=== PATIENT | female | born 1970 | race Caucasian/White ===

== ENCOUNTER 2021-07-13 17:42 | Emergency (ER) | payer SELFPAY ==
[2021-07-13] MEDS ORDERED: FLUORESCEIN SODIUM 1 MG/WRAP ONE ×2 (18:36→20:31)
[2021-07-13] MEDS ORDERED: TETRACAINE HCL 0.5% 4ML OPTH ONE ×2 (18:36→20:01)
[2021-07-13] MEDS ORDERED: Ringers Lactate 1,000 ML IV ONE (20:46)
[2021-07-13] MEDS ORDERED: LIDOCAINE 1% W/EPI 1:100,000 MDV 20 ML VIAL ONE (21:15)
--- NOTE | 2021-07-13 21:18 | EDPHYS ---
Physician Documentation [facility] Name: Diamante Govea Age: 51 yrs Sex: Female : 1970 Arrival Date: 07/13/2021 Time: 17:43 Bed 12 Private MD: ED Physician Ismael Horn HPI: 07/13 19:12 This 51 yrs old Female presents to ER via Ambulatory with complaints of Eye cp Problem. 19:12 The patient is experiencing foreign body sensation, pain, redness, to both eyes, caused cp by contact lens. 19:12 Onset: The symptoms/episode began/occurred today. Duration: the symptoms are cp continuous. Patient wears soft contacts. Patient reports she was given albuterol neb solution instead of contact lense cleaning solution to place contact lenses in yesterday by staff of [facility]. Patient believes this was accidental and after soaking contact lenses in solution and placing lenses in eyes earlier today, she started having redness, pain and feeling like "grit" in eyes today. Patient reports she has removed lenses and right eye symptoms worse than left. 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 - Social history:: Smoking status: Patient denies any tobacco usage or history of. Patient uses street drugs, Methamphetamine (Meth) Pt states she has been clean for 1 month., Patient/guardian denies using alcohol. ROS: 19:20 Constitutional: Negative for body aches, chills, fever. cp 19:20 Eyes: Positive for foreign body sensation, pain, redness, of the right eye and left eye.cp 19:20 ENT: Negative for drainage from ear(s), ear pain, sore throat, difficulty swallowing, difficulty handling secretions. 19:20 Respiratory: Negative for cough, shortness of breath, wheezing. 19:20 Skin: Negative for rash. 19:20 Neuro: Negative for gait disturbance. 19:20 All other systems are negative. Exam: 19:30 Constitutional: The patient appears in no acute distress, alert, awake, non-toxic, well cp developed, well nourished, uncomfortable. 19:30 Head/Face: Normocephalic, atraumatic. cp 19:30 Eyes: Periorbital structures: appear normal, Pupils: equal, round, and reactive to light and accomodation, Extraocular movements: intact throughout, Conjunctiva: injected, in the right eye, Corneas: abrasion, is not appreciated, foreign body, is not appreciated, a fluorescein strip employed to appreciate the findings, Sclera: no appreciated abnormality, Lids and lashes: appear normal, bilaterally, Visual baptiste: are intact. 19:30 ENT: External ear(s): are unremarkable, Nose: is normal, Mouth: Lips: moist, Oral mucosa: moist, Posterior pharynx: Airway: no evidence of obstruction, patent. 19:30 Neck: ROM/movement: is normal, is supple, without pain, no range of motions limitations, Lymph nodes: no appreciated lymphadenopathy. 19:30 Chest/axilla: Inspection: normal. 19:30 Cardiovascular: Rate: normal. 19:30 Respiratory: the patient does not display signs of respiratory distress, Respirations: normal, no use of accessory muscles. 19:30 Skin: cellulitis, is not appreciated, no rash present. Vital Signs: 17:47 BP 148 / 97; Pulse 78; Resp 18; Temp 97.8(TE); Pulse Ox 98% on R/A; Weight 58.97 kg; ld1 Height 5 ft. 2 in. (157.48 cm); Pain 5/10; 17:47 Body Mass Index 23.78 (58.97 kg, 157.48 cm) ld1 MDM: 19:11 Patient medically screened. cp 20:00 Differential diagnosis: Corneal abrasion of both eyes. Foreign body in both eyes. cp Chemical conjunctivitis in both eyes. Infectious conjunctivitis in both eyes. 21:15 Data reviewed: vital signs, nurses notes. cp 21:15 Counseling: I had a detailed discussion with the patient and/or guardian regarding: the cp historical points, exam findings, and any diagnostic results supporting the discharge/admit diagnosis, the need for outpatient follow up, an opthalmologist, to return to the emergency department if symptoms worsen or persist or if there are any questions or concerns that arise at home. Response to treatment: the patient's symptoms have mildly improved after treatment, and as a result, I will discharge patient. 07/13 19:12 Order name: Eye Tray; Complete Time: 20:03 07/13 19:12 Order name: Fluoresene Opth strip; Complete Time: 20:03 cp 07/13 19:12 Order name: Visual Acuity; Complete Time: 20:03 cp 07/13 19:12 Order name: Fluoresene Opth strip; Complete Time: 20:12 cp Administered Medications: 19:30 Drug: Tetracaine Drops 0.5 % 1 drops {Note: admin by LISSETH Page.} Route: mr2 Ophthalmic; Site: both eyes; 21:00 Drug: Lactated Ringers Solution 1000 ml Route: IV; Rate: 150 bolus; Site: Other; mr2 Disposition: 21:30 Chart complete. cp 07/14 19:05 Co-signature as Attending Physician, Ismael Horn MD I agree with the assessment and rn plan of care. Attestation: The patient's history, exam findings, diagnostics, and a summary of any interventions or procedures was reviewed in detail with Jacobo MONTANEZ. Disposition Summary: 07/13/21 21:17 Discharge Ordered Location: Home cp Problem: new cp Symptoms: have improved cp Condition: Stable cp Diagnosis - Unspecified acute conjunctivitis, bilateral cp Followup: cp - With: Kaur Lui MD - When: 1 - 2 days - Reason: Recheck today's complaints Discharge Instructions: - Discharge Summary Sheet cp - Chemical Conjunctivitis, Adult cp Forms: - Medication Reconciliation Form cp - Thank You Letter cp - Antibiotic Education cp - Prescription Opioid Use cp Prescriptions: - Ibuprofen 800 mg Oral Tablet - take 1 tablet by ORAL route every 8 hours As needed take with food; 30 tablet; cp Refills: 0, Product Selection Permitted - artificial tears(hypromellose) 0.3 % Ophthalmic drops - instill 2 drop by OPHTHALMIC route every 3-4 hours for 7 days; 2 bottle; cp Refills: 0, Product Selection Permitted Signatures: Ismael Horn MD MD rn Page, Corey, PA PA cp Stephanie Herr RN RN ld1 Abilio Aponte RN RN mr2
--- NOTE | 2021-07-13 21:18 | ER ---
Nurse's Notes [facility] Name: Diamante Govea Age: 51 yrs Sex: Female : 1970 Arrival Date: 07/13/2021 Time: 17:43 Bed 12 Private MD: Diagnosis: Unspecified acute conjunctivitis, bilateral Presentation: 07/13 17:47 Chief complaint: Patient states: I wear contact lenses, currently I am a patient at [address] They had saline solution for me to put my contacts in. Today I put them in my eyes. I just now found out it was albuterol solution. I soaked my contacts in albuterol solution and put them in my eyes. Now my eyes are burning very bad. Coronavirus screen: At this time, the client does not indicate any symptoms associated with coronavirus-19. Ebola Screen: No symptoms or risks identified at this time. Initial Sepsis Screen: Does the patient meet any 2 criteria? No. Patient's initial sepsis screen is negative. Does the patient have a suspected source of infection? No. Patient's initial sepsis screen is negative. Risk Assessment: Do you want to hurt yourself or someone else? Patient reports no desire to harm self or others. Onset of symptoms was July 13, 2021. 17:47 Method Of Arrival: Ambulatory ld1 17:47 Acuity: MELISSA 4 ld1 Triage Assessment: 17:50 General: Appears in no apparent distress. comfortable, Behavior is calm, cooperative, ld1 appropriate for age. Pain: Denies pain. EENT: Eyes are tearing on outer aspect of conjuctiva of right eye, iris of right eye, inner aspect of conjuctiva of right eye, outer aspect of conjuctiva of left eye, iris of left eye and inner aspect of conjunctiva of left eye Reports blurred vision. Neuro: Level of Consciousness is awake, alert, obeys commands, Oriented to person, place, time, situation, Appropriate for age. Cardiovascular: Capillary refill < 3 seconds Patient's skin is warm and dry. Respiratory: Airway is patent Respiratory effort is even, unlabored, Respiratory pattern is regular, symmetrical. GI: Abdomen is flat, non-distended. 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 - Social history:: Smoking status: Patient denies any tobacco usage or history of. Patient uses street drugs, Methamphetamine (Meth) Pt states she has been clean for 1 month., Patient/guardian denies using alcohol. Screenin:31 Abuse screen: Denies threats or abuse. Denies injuries from another. Nutritional mr2 screening: No deficits noted. Tuberculosis screening: No symptoms or risk factors identified. Fall Risk Secondary diagnosis (15 points) visual impairment . Assessment: 21:29 EENT: Eyes are tearing on outer aspect of conjuctiva of right eye, iris of right eye, mr2 inner aspect of conjuctiva of right eye, outer aspect of conjuctiva of left eye, iris of left eye and inner aspect of conjunctiva of left eye redness also bilaterally. Vital Signs: 17:47 BP 148 / 97; Pulse 78; Resp 18; Temp 97.8(TE); Pulse Ox 98% on R/A; Weight 58.97 kg; ld1 Height 5 ft. 2 in. (157.48 cm); Pain 5/10; 17:47 Body Mass Index 23.78 (58.97 kg, 157.48 cm) ld1 ED Course: 17:43 Patient arrived in ED. am2 17:50 Triage completed. ld1 17:50 Arm band placed on right wrist. ld1 19:04 Jacobo Ornelas PA is PHCP. cp 19:04 Ismael Horn MD is Attending Physician. cp 19:10 Bed in low position. Call light in reach. Side rails up X2. mr2 20:03 Abilio Aponte, SAMMY is Primary Nurse. mr2 21:16 Kaur Lui MD is Referral Physician. cp 21:30 No provider procedures requiring assistance completed. Patient did not have IV access mr2 during this emergency room visit. Administered Medications: 19:30 Drug: Tetracaine Drops 0.5 % 1 drops {Note: admin by LISSETH Page.} Route: mr2 Ophthalmic; Site: both eyes; 21:00 Drug: Lactated Ringers Solution 1000 ml Route: IV; Rate: 150 bolus; Site: Other; mr2 Outcome: 21:17 Discharge ordered by MD. lyman 21:30 Discharged to home ambulatory. mr2 21:30 Condition: stable 21:30 Discharge instructions given to patient, Instructed on discharge instructions, follow up and referral plans. 21:33 Patient left the ED. mr2 Signatures: Jacobo Ornelas PA PA cp Moreno, Amanda am2 Stephanie Herr RN RN ld1 Abilio Aponte RN RN mr2
[2021-07-13 22:10] VITALS: BP 148/97; TEMP 97.8; O2SAT 98
--- OUTSIDE RECORDS SUMMARY | 2021-07-22 11:58 | XMS REPORT | Continuity of Care Document ---
:1970 Author Organization [facility] t Address [address] [place] [address] Care Team Providers Name Role Phone Pcp, Does Not Have A Primary Care Physician Doctor Unassigned, Name Attending Clinician Unavailable Lena MORRIS Attending Clinician Unavailable Roberto Yeung DO Attending Clinician Mor Attending Clinician [phone] Blu LONG A Attending Clinician Unknown Attending Clinician Unavailable UNKNOWN Attending Clinician Unavailable Pravin CHRISTIANSON Attending Clinician Unavailable Only, Test Attending Clinician Unavailable Arturo JOHNSON H Attending Clinician Jose LONG, L Attending Clinician GARCIA, L Attending Clinician Unavailable Maryann Nava MD Attending Clinician Jack Boo MD Attending Clinician Problems Condition Condition Condition Status Onset Resolution Last Treating Co mments Source Name Details Category Date Date Treatment Clinician Date Low serum Low serum Disease Active Uni vers vitamin vitamin 1-04 ity of B12 B12 00:00: [place] 00 Medical Branch Long-term Long-term Disease Active 2017-09 Uni vers use of use of 2-21 [place] of high-risk high-risk [place] 00 [place] dic[place] Attention Attention Disease Active 2017-09 Uni vers deficit deficit 2-21 ity [place] hyperactiv [place] Medical disorder disorder Branch (ADHD), (ADHD), combined combined type type Anxiety Anxiety Disease Active 2017-09 Univers 2-21 ity of 00:00: [place] 00 Medical Branch Mild Mild Disease Active 2017-09 Univers intermitte intermitte 2-21 it y of nt asthma nt asthma 00:[place] without without 00 Medical complicati complicati Br anch on on Allergies, Adverse Reactions, Alerts Allergy Allergy Status Severity Reaction(s) Onset Inactive Treating Comm ents Source Name Type Date Date Clinician BUTALBIT DRUG Active Unknown-Cmnt Un arsh AL-ACETA 9- ity of MINOPHEN 00:00: [place] 00 Medical Branch Butalbit Propensi Active Unknown - "Disorien Univers al-Aceta ty to See comments 05-28 david" it y of minophen adverse 00:00: [place] reaction 00 Medical s to Branch drug FLUTICAS DRUG Active Unknown-Cmnt Un arsh ONE 2-21 ity of PROPION- 00:00: [place] SALMETER 00 Medical OL Branch Fluticas Propensi Active Unknown - Uni vers one ty to See comments 2- ity of Propion- adverse 00:00: [place] Salmeter reaction 00 Medica l ol s Branch Social History Social Habit Start Date Stop Date Quantity Comments Source History SDOH University o f Alcohol Frequency [place] [facility] Branch History SDOH University o f Alcohol Std [place] [facility] Drinks Branch History SDOH University o f Alcohol Binge [place] Medic al Branch Exposure to Not sure [facility] SARS-CoV-2 [place] [facility] (event) Branch Alcohol intake 2020-08-17 2020-08-17 Current drinker Unive rsity of 00:00:00 00:00:00 of alcohol [place] [facility] (finding) Branch Alcohol Comment 2018-08-29 2018-08-29 a few times per Univ ersity of 00:00:00 00:00:00 month. max 2 [place] Medica l drinks per night Branch Tobacco use and 2018-08-29 2018-08-29 Never used Universit y of exposure 00:00:00 00:00:00 [facility] Sex [birth year] Universit y of 00:00:00 00:00:00 [facility] Smoking Status Start Date Stop Date Source Never smoker [facility] Medical Branch Medications Ordered Filled Start Stop Current Ordering Indication Dosage Frequency Signature Comments Components Source Medication Medication Date Date Medication? Clinician (SIG) Name Name ketorolac 2019-09- No 30mg Univers (TORADOL) 10-19 ity of injection 02:45: 01:43 [place] 30 mg 00 :00 Medical Branch ketorolac 2019-09- No 30mg 30 mg, Unive rs (TORADOL) 10-19 Intramuscu ity of injection 02:45: 01:43 [place], ONCE, [place] 30 mg 00 :00 1 dose, Medical Wed Branch 08/17/20 at 2045, Routine
[employer] crew[employer] approving Restricted medication : [place] naproxen 2019-09 2020- No [id number] 500mg Take 1 Univers 500 mg 10-18 [id number] tablet by ity o f tablet 00:00: 05:59 mouth 2 [place] 00 :00 (two) Medical times Branch daily with meals for 7 days. naproxen 2019-09- No [id number] 500mg Take 1 Univers 500 mg 10-18 [id number] tablet by ity o f tablet 00:00: 05:59 mouth 2 [place] 00 :00 (two) Medical times Branch daily with meals for 7 days. azelastine 2019- Yes [id number] 2{spray Use 2 Univers 137 mcg 06-01 } Sprays in ity of (0.1 %) 00:00: each [place] nasal spray 00 nostril 2 Med ical (two) Branch times daily. Use in each nostril as directed methocarbam 2020-0 Yes [id number] 500mg Take 1 Univers oL 9-23 tablet by ity of (ROBAXIN) 00:00: mouth 4 [place] 500 mg 00 (four) Medical tablet times Branch daily as needed for Pain (scale 4-6). SUMAtriptan 2019-0 Yes [id number] 25mg Take 1 Univers (IMITREX) 9-23 tablet by ity o f 25 mg 00:00: mouth [place] tablet 00 SEE-INSTRU Medical CTIONS. Branch Take 1 tab for migraine headache, may repeat in 2 hours if no improvemen t. MAX 2 daily. azelastine 2019-0 Yes [id number] 2{spray Use 2 Univers 137 mcg 06-01 } Sprays in ity of (0.1 %) 00:00: each [place] nasal spray 00 nostril 2 Med ical (two) Branch times daily. Use in each nostril as directed methocarbam 2020-0 Yes [id number] 500mg Take 1 Univers oL 9-23 tablet by ity of (ROBAXIN) 00:00: mouth 4 [place] 500 mg 00 (four) Medical tablet times Branch daily as needed for Pain (scale 4-6). SUMAtriptan 2020-0 Yes [id number] 25mg Take 1 Univers (IMITREX) 9-23 tablet by ity o f 25 mg 00:00: mouth [place] tablet 00 SEE-INSTRU Medical CTIONS. Branch Take 1 tab for migraine headache, may repeat in 2 hours if no improvemen t. MAX 2 daily. azelastine 2020-0 Yes [id number] 2{spray Use 2 Univers 137 mcg 06-01 } Sprays in ity of (0.1 %) 00:00: each [place] nasal spray 00 nostril 2 Med ical (two) Branch times daily. Use in each nostril as directed methocarbam 2020-0 Yes [id number] 500mg Take 1 Univers oL 9-23 tablet by ity of (ROBAXIN) 00:00: mouth 4 [place] 500 mg 00 (four) Medical tablet times Branch daily as needed for Pain (scale 4-6). SUMAtriptan 2020-0 Yes [id number] 25mg Take 1 Univers (IMITREX) 9-23 tablet by ity o f 25 mg 00:00: mouth [place] tablet 00 SEE-INSTRU Medical CTIONS. Branch Take 1 tab for migraine headache, may repeat in 2 hours if no improvemen t. MAX 2 daily. azelastine 2020-0 Yes [id number] 2{spray Use 2 Univers 137 mcg 06-01 } Sprays in ity of (0.1 %) 00:00: each [place] nasal spray 00 nostril 2 Med ical (two) Branch times daily. Use in each nostril as directed methocarbam 2020-0 Yes [id number] 500mg Take 1 Univers oL 9-23 tablet by ity of (ROBAXIN) 00:00: mouth 4 [place] 500 mg 00 (four) Medical tablet times Branch daily as needed for Pain (scale 4-6). SUMAtriptan 2020-0 Yes [id number] 25mg Take 1 Univers (IMITREX) 9-23 tablet by ity o f 25 mg 00:00: mouth [place] tablet 00 SEE-INSTRU Medical CTIONS. Branch Take 1 tab for migraine headache, may repeat in 2 hours if no improvemen t. MAX 2 daily. azelastine 2020-0 Yes [id number] 2{spray Use 2 Univers 137 mcg 9- 61996 } Sprays in ity of (0.1 %) 00:00: each [place] nasal spray 00 nostril 2 Med ical (two) Branch times daily. Use in each nostril as directed methocarbam 2020-0 Yes [id number] 500mg Take 1 Univers oL 9-23 tablet by ity of (ROBAXIN) 00:00: mouth 4 [place] 500 mg 00 (four) Medical tablet times Branch daily as needed for Pain (scale 4-6). SUMAtriptan 2020-0 Yes [id number] 25mg Take 1 Univers (IMITREX) 9-23 tablet by ity o f 25 mg 00:00: mouth [place] tablet 00 SEE-INSTRU Medical CTIONS. Branch Take 1 tab for migraine headache, may repeat in 2 hours if no improvemen t. MAX 2 daily. azelastine 2020-0 Yes [id number] 2{spray Use 2 Univers 137 mcg 9- 56615 } Sprays in ity of (0.1 %) 00:00: each [place] nasal spray 00 nostril 2 Med ical (two) Branch times daily. Use in each nostril as directed methocarbam 2020-0 Yes [id number] 500mg Take 1 Univers oL 9-23 tablet by ity of (ROBAXIN) 00:00: mouth 4 [place] 500 mg 00 (four) Medical tablet times Branch daily as needed for Pain (scale 4-6). SUMAtriptan 2020-0 Yes [id number] 25mg Take 1 Univers (IMITREX) 9-23 tablet by ity o f 25 mg 00:00: mouth [place] tablet 00 SEE-INSTRU Medical CTIONS. Branch Take 1 tab for migraine headache, may repeat in 2 hours if no improvemen t. MAX 2 daily. azelastine 2020-0 Yes [id number] 2{spray Use 2 Univers 137 mcg 9- 30540 } Sprays in ity of (0.1 %) 00:00: each [place] nasal spray 00 nostril 2 Med ical (two) Branch times daily. Use in each nostril as directed methocarbam 2020-0 Yes [id number] 500mg Take 1 Univers oL 9-23 tablet by ity of (ROBAXIN) 00:00: mouth 4 [place] 500 mg 00 (four) Medical tablet times Branch daily as needed for Pain (scale 4-6). SUMAtriptan 2020-0 Yes [id number] 25mg Take 1 Univers (IMITREX) 9-23 tablet by ity o f 25 mg 00:00: mouth [place] tablet 00 SEE-INSTRU Medical CTIONS. Branch Take 1 tab for migraine headache, may repeat in 2 hours if no improvemen t. MAX 2 daily. azelastine 2020-0 Yes [id number] 2{spray Use 2 Univers 137 mcg 06-01 97085 } Sprays in ity of (0.1 %) 00:00: each [place] nasal spray 00 nostril 2 Med ical (two) Branch times daily. Use in each nostril as directed methocarbam 2020-0 Yes [id number] 500mg Take 1 Univers oL 9-23 tablet by ity of (ROBAXIN) 00:00: mouth 4 [place] 500 mg 00 (four) Medical tablet times Branch daily as needed for Pain (scale 4-6). SUMAtriptan 2020-0 Yes [id number] 25mg Take 1 Univers (IMITREX) 9-23 tablet by ity o f 25 mg 00:00: mouth [place] tablet 00 SEE-INSTRU Medical CTIONS. Branch Take 1 tab for migraine headache, may repeat in 2 hours if no improvemen t. MAX 2 daily. azelastine 2020-0 Yes [id number] 2{spray Use 2 Univers 137 mcg 9 40165 } Sprays in ity of (0.1 %) 00:00: each [place] nasal spray 00 nostril 2 Med ical (two) Branch times daily. Use in each nostril as directed methocarbam 2020-0 Yes [id number] 500mg Take 1 Univers oL 9-23 tablet by ity of (ROBAXIN) 00:00: mouth 4 [place] 500 mg 00 (four) Medical tablet times Branch daily as needed for Pain (scale 4-6). SUMAtriptan 2020-0 Yes [id number] 25mg Take 1 Univers (IMITREX) 9-23 tablet by ity o f 25 mg 00:00: mouth [place] tablet 00 SEE-INSTRU Medical CTIONS. Branch Take 1 tab for migraine headache, may repeat in 2 hours if no improvemen t. MAX 2 daily. SUMAtriptan 2020-0 2020- No [id number] 25mg Take 1 Univers (IMITREX) 06-01 tablet by ity of 25 mg 00:00: 00:00 mouth [place] tablet 00 :00 SEE-INSTRU Medical CTIONS. Branch Take 1 tab for migraine headache, may repeat in 2 hours if no improvemen t. MAX 2 daily. methocarbam 2020-0 2020- No [id number] 500mg Take 1 Univers oL 06-01 tablet by ity of (ROBAXIN) 00:00: 00:00 mouth 4 [place] 500 mg 00 :00 (four) Medical tablet times Branch daily as needed for Pain (scale 4-6). azelastine 2019-2019- No [id number] 2{spray Use 2 Univers 137 mcg 06-01 } Sprays in ity o f (0.1 %) 00:00: 00:00 each [place] nasal spray 00 :00 nostril 2 Med ical (two) Branch times daily. Use in each nostril as directed SUMAtriptan 2020-0 2020- No [id number] 25mg Take 1 Univers (IMITREX) 06-01 tablet by ity of 25 mg 00:00: 00:00 mouth [place] tablet 00 :00 SEE-INSTRU Medical CTIONS. Branch Take 1 tab for migraine headache, may repeat in 2 hours if no improvemen t. MAX 2 daily. methocarbam 2019-2019- No [id number] 500mg Take 1 Univers oL 06-01 tablet by ity of (ROBAXIN) 00:00: 00:00 mouth 4 [place] 500 mg 00 :00 (four) Medical tablet times Branch daily as needed for Pain (scale 4-6). azelastine 2019-2019- No [id number] 2{spray Use 2 Univers 137 mcg 06-01 } Sprays in ity o f (0.1 %) 00:00: 00:00 each [place] nasal spray 00 :00 nostril 2 Med ical (two) Branch times daily. Use in each nostril as directed chlorhexidi 2018- Yes [id number] 15mL Swish and Univers ne 0.12 % 2-03 spit out ity of mouthwash 00:00: 15 mL 2 [place] 00 (two) Medical times Branch daily. naproxen 2018-09 Yes [id number] 375mg Take 1 U nivers 375 mg EC 2-03 tablet by ity o f tablet 00:00: mouth 2 [place] 00 (two) Medical times Branch daily with meals. atomoxetine 2018-09 Yes [id number] 80mg Take 1 Univers (STRATTERA) 2-03 capsule by it y of 80 mg 00:00: mouth [place] capsule 00 daily. Medical After 1 Branch week 40mg daily chlorhexidi 2018-09 Yes [id number] 15mL Swish and Univers ne 0.12 % 2-03 spit out ity of mouthwash 00:00: 15 mL 2 [place] 00 (two) Medical times Branch daily. naproxen 2018-09 Yes [id number] 375mg Take 1 U nivers 375 mg EC 2-03 tablet by ity o f tablet 00:00: mouth (two) Medical times Branch daily with meals. atomoxetine 2018-09 Yes [id number] 80mg Take 1 Univers (STRATTERA) 2-03 capsule by it y of 80 mg 00:00: mouth [place] capsule 00 daily. Medical After 1 Branch week 40mg daily chlorhexidi 2018-09 Yes [id number] 15mL Swish and Univers ne 0.12 % 2-03 spit out ity of mouthwash 00:00: 15 mL 2 [place] 00 (two) Medical times Branch daily. naproxen 2018-09 Yes [id number] 375mg Take 1 U nivers 375 mg EC 2-03 tablet by ity o f tablet 00:00: mouth 2 [place] (two) Medical times Branch daily with meals. atomoxetine 2018-09 Yes [id number] 80mg Take 1 Univers (STRATTERA) 2-03 capsule by it y of 80 mg 00:00: mouth [place] capsule 00 daily. Medical After 1 Branch week 40mg daily chlorhexidi 2018-09 Yes [id number] 15mL Swish and Univers ne 0.12 % 2-03 spit out ity of mouthwash 00:00: 15 mL 2 [place] 00 (two) Medical times Branch daily. naproxen 2018-09 Yes [id number] 375mg Take 1 U nivers 375 mg EC 2-03 tablet by ity o f tablet 00:00: mouth 2 00 (two) Medical times Branch daily with meals. atomoxetine 2018-09 Yes [id number] 80mg Take 1 Univers (STRATTERA) 2-03 capsule by it y of 80 mg 00:00: mouth [place] capsule 00 daily. Medical After 1 Branch week 40mg daily chlorhexidi 2018-09 Yes [id number] 15mL Swish and Univers ne 0.12 % 2-03 spit out ity of mouthwash 00:00: 15 mL 2 [place] 00 (two) Medical times Branch daily. naproxen 2018-09 Yes [id number] 375mg Take 1 U nivers 375 mg EC 2-03 tablet by ity o f tablet 00:00: mouth 2 00 (two) Medical times Branch daily with meals. atomoxetine 2018-09 Yes [id number] 80mg Take 1 Univers (STRATTERA) 2-03 capsule by it y of 80 mg 00:00: mouth [place] capsule 00 daily. Medical After 1 Branch week 40mg daily chlorhexidi 2018-09 Yes [id number] 15mL Swish and Univers ne 0.12 % 2-03 spit out ity of mouthwash 00:00: 15 mL 2 00 (two) Medical times Branch daily. naproxen 2018-09 Yes [id number] 375mg Take 1 U nivers 375 mg EC 2-03 tablet by ity o f tablet 00:00: mouth 2 00 (two) Medical times Branch daily with meals. atomoxetine 2018-09 Yes [id number] 80mg Take 1 Univers (STRATTERA) 2-03 capsule by it y of 80 mg 00:00: mouth [place] capsule 00 daily. Medical After 1 Branch week 40mg daily chlorhexidi 2018-09 Yes [id number] 15mL Swish and Univers ne 0.12 % 2-03 spit out ity of mouthwash 00:00: 15 mL 2 00 (two) Medical times Branch daily. naproxen 2018-09 Yes [id number] 375mg Take 1 U nivers 375 mg EC 2-03 tablet by ity o f tablet 00:00: mouth 2 00 (two) Medical times Branch daily with meals. atomoxetine 2018-09 Yes [id number] 80mg Take 1 Univers (STRATTERA) 2-03 capsule by it y of 80 mg 00:00: mouth [place] capsule 00 daily. Medical After 1 Branch week 40mg daily chlorhexidi 2018-09 Yes [id number] 15mL Swish and Univers ne 0.12 % 2-03 spit out ity of mouthwash 00:00: 15 mL 2 [place] 00 (two) Medical times Branch daily. naproxen 2018-09 Yes [id number] 375mg Take 1 U nivers 375 mg EC 2-03 tablet by ity o f tablet 00:00: mouth 2 [place] 00 (two) Medical times Branch daily with meals. atomoxetine 2018-09 Yes [id number] 80mg Take 1 Univers (STRATTERA) 2-03 capsule by it y of 80 mg 00:00: mouth [place] capsule 00 daily. Medical After 1 Branch week 40mg daily chlorhexidi 2018-09 Yes [id number] 15mL Swish and Univers ne 0.12 % 2-03 spit out ity of mouthwash 00:00: 15 mL 2 [place] 00 (two) Medical times Branch daily. naproxen 2018-09 Yes [id number] 375mg Take 1 U nivers 375 mg EC 2-03 tablet by ity o f tablet 00:00: mouth 2 [place] 00 (two) Medical times Branch daily with meals. atomoxetine 2018-09 Yes [id number] 80mg Take 1 Univers (STRATTERA) 2-03 capsule by it y of 80 mg 00:00: mouth [place] capsule 00 daily. Medical After 1 Branch week 40mg daily methocarbam 2018-09 2020- No [id number] 500mg Take 1 Univers ol 2-03 -23 tablet by ity of (ROBAXIN) 00:00: 00:00 mouth 4 [place] 500 mg 00 :00 (four) Medical tablet times Branch daily as needed for Pain (scale 4-6). methocarbam 2018-09 2020- No [id number] 500mg Take 1 Univers ol 2-03 -23 tablet by ity of (ROBAXIN) 00:00: 00:00 mouth 4 [place] 500 mg 00 :00 (four) Medical tablet times Branch daily as needed for Pain (scale 4-6). hydroCHLORO Yes [id number] 6.25mg Take 0.5 Univers thiazide 8-21 [id number] tablets by ity of 12.5 mg 00:00: mouth [place] tablet 00 daily. Medical Branch hydroCHLORO Yes [id number] 6.25mg Take 0.5 Univers thiazide 8-21 [id number] tablets by ity of 12.5 mg 00:00: mouth [place] tablet [address] [facility] hydroCHLORO 2019-0 Yes [id number] 6.25mg Take 0.5 Univers thiazide 8-21 [id number] tablets by ity of 12.5 mg 00:00: mouth [place] tablet [address] [facility] hydroCHLORO 0 Yes [id number] 6.25mg Take 0.5 Univers thiazide 8-21 [id number] tablets by ity of 12.5 mg 00:00: mouth [place] tablet [address] [facility] hydroCHLORO Yes [id number] 6.25mg Take 0.5 Univers thiazide 8-21 [id number] tablets by ity of 12.5 mg 00:00: mouth [place] tablet [address] [facility] hydroCHLORO Yes [id number] 6.25mg Take 0.5 Univers thiazide 8-21 [id number] tablets by ity of 12.5 mg 00:00: mouth [place] tablet [address] [facility] hydroCHLORO Yes [id number] 6.25mg Take 0.5 Univers thiazide 8-21 [id number] tablets by ity of 12.5 mg 00:00: mouth [place] tablet [address] [facility] azelastine Yes [id number] 2{spray Use 2 Univers 137 mcg 8-21 29909 } Sprays in ity of (0.1 %) 00:00: each [place] nasal spray 00 nostril 2 Med ical (two) Branch times daily. Use in each nostril as directed hydroCHLORO 0 Yes [id number] 6.25mg Take 0.5 Univers thiazide 8-21 [id number] tablets by ity of 12.5 mg 00:00: mouth [place] tablet [address] [facility] azelastine Yes [id number] 2{spray Use 2 Univers 137 mcg 8-21 93210 } Sprays in ity of (0.1 %) 00:00: each [place] nasal spray 00 nostril 2 Med ical (two) Branch times daily. Use in each nostril as directed hydroCHLORO Yes [id number] 6.25mg Take 0.5 Univers thiazide 8-21 [id number] tablets by ity of 12.5 mg 00:00: mouth [place] tablet [address] [facility] hydroCHLORO Yes [id number] 6.25mg Take 0.5 Univers thiazide 8-21 [id number] tablets by ity of 12.5 mg 00:00: mouth [place] tablet [address] [facility] hydroCHLORO Yes [id number] 6.25mg Take 0.5 Univers thiazide 8-21 [id number] tablets by ity of 12.5 mg 00:00: mouth [place] tablet [address] [facility] azelastine 2019- No [id number] 2{spray Use 2 Univers 137 mcg -06-01 } Sprays in ity o f (0.1 %) 00:00: 00:00 each [place] nasal spray 00 :00 nostril 2 Med ical (two) Branch times daily. Use in each nostril as directed azelastine 2019- No [id number] 2{spray Use 2 Univers 137 mcg -06-01 94581 } Sprays in ity o f (0.1 %) 00:00: 00:00 each [place] nasal spray 00 :00 nostril 2 Med ical (two) Branch times daily. Use in each nostril as directed hydroCHLORO 2018- No [id number] 6.25mg Take 0.5 Univers thiazide 8-29 04-06 tablets by ity of 12.5 mg 00:00: 00:00 mouth [place] tablet 00 :[address] [facility] azelastine 2018- No [id number] 2{spray Use 2 Univers 137 mcg -04-29 41643 } Sprays in ity o f (0.1 %) 00:00: 00:00 each [place] nasal spray 00 :00 nostril 2 Med ical (two) Branch times daily. Use in each nostril as directed hydroCHLORO 2018- No [id number] 6.25mg Take 0.5 Univers thiazide 8-29 04- 04422 tablets by ity of 12.5 mg 00:00: 00:00 mouth [place] tablet 00 :[address] [facility] azelastine 2018- No [id number] 2{spray Use 2 Univers 137 mcg 8-29 04- 55370 } Sprays in ity o f (0.1 %) 00:00: 00:00 each [place] nasal spray 00 :00 nostril 2 Med ical (two) Branch times daily. Use in each nostril as directed ketorolac 2019- No [id number] 10mg Take 1 U nivers 10 mg 7-18 08-22 tablet by ity of tablet 00:00: 00:00 mouth [place] 00 :00 every 6 Medical (six) Branch hours as needed for Pain (scale 1-3). ketorolac 2019- No [id number] 10mg Take 1 U nivers 10 mg 7-18 08-22 tablet by ity of tablet 00:00: 00:00 mouth [place] 00 :00 every 6 Medical (six) Branch hours as needed for Pain (scale 1-3). albuterol Yes [id number] 2{puff} Inhale 2 Univers 90 6-27 Puffs ity of mcg/actuati 00:00: every 6 [place] on inhaler 00 (six) Medical hours as Branch needed for Wheezing or Shortness of Breath. albuterol Yes [id number] 2{puff} Inhale 2 Univers 90 6-27 Puffs ity of mcg/actuati 00:00: every 6 [place] as on inhaler 00 (six) Medical hours as Branch needed for Wheezing or Shortness of Breath. albuterol Yes [id number] 2{puff} Inhale 2 Univers 90 6-27 Puffs ity of mcg/actuati 00:00: every 6 [place] as on inhaler 00 (six) Medical hours as Branch needed for Wheezing or Shortness of Breath. albuterol Yes [id number] 2{puff} Inhale 2 Univers 90 6-27 Puffs ity of mcg/actuati 00:00: every 6 [place] as on inhaler 00 (six) Medical hours as Branch needed for Wheezing or Shortness of Breath. albuterol Yes [id number] 2{puff} Inhale 2 Univers 90 6-27 Puffs ity of mcg/actuati 00:00: every 6 [place] as on inhaler 00 (six) Medical hours as Branch needed for Wheezing or Shortness of Breath. albuterol Yes [id number] 2{puff} Inhale 2 Univers 90 6-27 Puffs ity of mcg/actuati 00:00: every 6 [place] as on inhaler 00 (six) Medical hours as Branch needed for Wheezing or Shortness of Breath. albuterol Yes [id number] 2{puff} Inhale 2 Univers 90 6-27 Puffs ity of mcg/actuati 00:00: every 6 [place] as on inhaler 00 (six) Medical hours as Branch needed for Wheezing or Shortness of Breath. albuterol Yes [id number] 2{puff} Inhale 2 Univers 90 6-27 Puffs ity of mcg/actuati 00:00: every 6 [place] as on inhaler 00 (six) Medical hours as Branch needed for Wheezing or Shortness of Breath. albuterol Yes [id number] 2{puff} Inhale 2 Univers 90 6-27 Puffs ity of mcg/actuati 00:00: every 6 [place] as on inhaler 00 (six) Medical hours as Branch needed for Wheezing or Shortness of Breath. albuterol Yes [id number] 2{puff} Inhale 2 Univers 90 6-27 Puffs ity of mcg/actuati 00:00: every 6 [place] as on inhaler 00 (six) Medical hours as Branch needed for Wheezing or Shortness of Breath. albuterol Yes [id number] 2{puff} Inhale 2 Univers 90 6-27 Puffs ity of mcg/actuati 00:00: every 6 [place] as on inhaler 00 (six) Medical hours as Branch needed for Wheezing or Shortness of Breath. predniSONE 2019- No [id number] 40mg Take 2 Univers 20 mg 6-27 08-22 tablets by ity of tablet 00:00: 00:00 mouth [place] 00 :00 daily. Medical Branch methocarbam 2019- No [id number] 500mg Take 1 Univers ol 6-27 08-22 tablet by ity of (ROBAXIN) 00:00: 00:00 mouth 4 [place] 500 mg 00 :00 (four) Medical tablet times Branch daily as needed for Pain (scale 4-6). predniSONE 2019- No [id number] 40mg Take 2 Univers 20 mg 6-27 08-22 tablets by ity of tablet 00:00: 00:00 mouth [place] 00 :00 daily. Medical [place] methocarbam 2018- 2019- No [id number] 500mg Take 1 Univers ol 627 08-22 tablet by ity of (ROBAXIN) 00:00: 00:00 mouth 4 [place] 500 mg 00 :00 (four) Medical tablet times Branch daily as needed for Pain (scale 4-6). Cyanocobala 2018- Yes [id number] 1{tbl} Place 1 Univers min 1,000 1-11 tablet ity of mcg 00:00: under the [place] sublingual 00 tongue Medical tablet daily. [place] Cyanocobala 2018- Yes [id number] 1{tbl} Place 1 Univers min 1,000 1-11 tablet ity of mcg 00:00: under the [place] sublingual 00 tongue Medical tablet daily. Branch Cyanocobala 2018- Yes [id number] 1{tbl} Place 1 Univers min 1,000 1-11 tablet ity of mcg 00:00: under the [place] sublingual 00 tongue Medical tablet daily. [place] Cyanocobala 2018- Yes [id number] 1{tbl} Place 1 Univers min 1,000 1-11 tablet ity of mcg 00:00: under the [place] sublingual 00 tongue Medical tablet daily. [place] Cyanocobala 2018- Yes [id number] 1{tbl} Place 1 Univers min 1,000 1-11 tablet ity of mcg 00:00: under the [place] sublingual 00 tongue Medical tablet daily. Branch Cyanocobala 2018- Yes [id number] 1{tbl} Place 1 Univers min 1,000 1-11 tablet ity of mcg 00:00: under the [place] sublingual 00 tongue Medical tablet daily. [place] Cyanocobala 2018- Yes [id number] 1{tbl} Place 1 Univers min 1,000 1-11 tablet ity of mcg 00:00: under the [place] sublingual 00 tongue Medical tablet daily. Branch Cyanocobala 2018- Yes [id number] 1{tbl} Place 1 Univers min 1,000 1-11 tablet ity of mcg 00:00: under the [place] sublingual 00 tongue Medical tablet daily. Branch Cyanocobala 2018- Yes [id number] 1{tbl} Place 1 Univers min 1,000 1-11 tablet ity of mcg 00:00: under the [place] sublingual 00 tongue Medical tablet daily. Branch Cyanocobala 2018- Yes [id number] 1{tbl} Place 1 Univers min 1,000 1-11 tablet ity of mcg 00:00: under the [place] sublingual 00 tongue Medical tablet daily. Branch Cyanocobala Yes [id number] 1{tbl} Place 1 Univers min 1,000 1-11 tablet ity of mcg 00:00: under the [place] sublingual 00 tongue Medical tablet daily. Branch atomoxetine Yes [id number] 40mg Take 1 Univers (STRATTERA) 1-04 capsule by it y of 40 mg 00:00: mouth [place] capsule 00 daily. Medical Branch atomoxetine Yes [id number] 40mg Take 1 Univers (STRATTERA) 1-04 capsule by it y of 40 mg 00:00: mouth [place] capsule 00 daily. Medical Branch atomoxetine Yes [id number] 40mg Take 1 Univers (STRATTERA) 1-04 capsule by it y of 40 mg 00:00: mouth [place] capsule 00 daily. Medical Branch atomoxetine Yes [id number] 40mg Take 1 Univers (STRATTERA) 1-04 capsule by it y of 40 mg 00:00: mouth [place] capsule 00 daily. Medical Branch atomoxetine Yes [id number] 40mg Take 1 Univers (STRATTERA) 1-04 capsule by it y of 40 mg 00:00: mouth [place] capsule 00 daily. Medical Branch atomoxetine Yes [id number] 40mg Take 1 Univers (STRATTERA) 1-04 capsule by it y of 40 mg 00:00: mouth [place] capsule 00 daily. Medical Branch atomoxetine Yes [id number] 40mg Take 1 Univers (STRATTERA) 1-04 capsule by it y of 40 mg 00:00: mouth [place] capsule 00 daily. Medical Branch atomoxetine Yes [id number] 80mg Take 1 Univers (STRATTERA) 1-04 capsule by it y of 80 mg 00:00: mouth [place] capsule 00 daily. Medical After 1 Branch week 40mg daily atomoxetine 2018-0 Yes [id number] 40mg Take 1 Univers (STRATTERA) 1-04 capsule by it y of 40 mg 00:00: mouth [place] capsule 00 daily. Medical Branch atomoxetine 2018- Yes [id number] 40mg Take 1 Univers (STRATTERA) 1-04 capsule by it y of 40 mg 00:00: mouth [place] capsule 00 daily. Medical Branch atomoxetine Yes [id number] 80mg Take 1 Univers (STRATTERA) 1-04 capsule by it y of 80 mg 00:00: mouth [place] capsule 00 daily. Medical After 1 Branch week 40mg daily atomoxetine Yes [id number] 40mg Take 1 Univers (STRATTERA) 1-04 capsule by it y of 40 mg 00:00: mouth [place] capsule 00 daily. Medical Branch atomoxetine Yes [id number] 40mg Take 1 Univers (STRATTERA) 1-04 capsule by it y of 40 mg 00:00: mouth [place] capsule 00 daily. Medical Branch hydrOXYzine 2017-09 Yes [id number] 12.5mg Take 0.5-2 Univers 25 mg 2-21 tablets by ity of tablet 00:00: mouth [place] 00 every 6 Medical (six) Branch hours as needed for Anxiety. hydrOXYzine 2017-09 Yes [id number] 12.5mg Take 0.5-2 Univers 25 mg 2-21 tablets by ity of tablet 00:00: mouth [place] 00 every 6 Medical (six) Branch hours as needed for Anxiety. hydrOXYzine 2017-09 Yes [id number] 12.5mg Take 0.5-2 Univers 25 mg 2-21 tablets by ity of tablet 00:00: mouth [place] 00 every 6 Medical (six) Branch hours as needed for Anxiety. hydrOXYzine 2017-09 Yes [id number] 12.5mg Take 0.5-2 Univers 25 mg 2-21 tablets by ity of tablet 00:00: mouth [place] 00 every 6 Medical (six) Branch hours as needed for Anxiety. hydrOXYzine 2017-09 Yes [id number] 12.5mg Take 0.5-2 Univers 25 mg 2-21 tablets by ity of tablet 00:00: mouth [place] 00 every 6 Medical (six) Branch hours as needed for Anxiety. hydrOXYzine 2017-09 Yes [id number] 12.5mg Take 0.5-2 Univers 25 mg 2-21 tablets by ity of tablet 00:00: mouth [place] 00 every 6 Medical (six) Branch hours as needed for Anxiety. hydrOXYzine 2017-09 Yes [id number] 12.5mg Take 0.5-2 Univers 25 mg 2-21 tablets by ity of tablet 00:00: mouth [place] 00 every 6 Medical (six) Branch hours as needed for Anxiety. hydrOXYzine 2017-09 Yes [id number] 12.5mg Take 0.5-2 Univers 25 mg 2-21 tablets by ity of tablet 00:00: mouth [place] 00 every 6 Medical (six) Branch hours as needed for Anxiety. hydrOXYzine 2017-09 Yes [id number] 12.5mg Take 0.5-2 Univers 25 mg 2-21 tablets by ity of tablet 00:00: mouth [place] 00 every 6 Medical (six) Branch hours as needed for Anxiety. hydrOXYzine 2017-09 Yes [id number] 12.5mg Take 0.5-2 Univers 25 mg 2-21 tablets by ity of tablet 00:00: mouth [place] 00 every 6 Medical (six) Branch hours as needed for Anxiety. hydrOXYzine 2017-09 Yes [id number] 12.5mg Take 0.5-2 Univers 25 mg 2-21 tablets by ity of tablet 00:00: mouth [place] 00 every 6 Medical (six) Branch hours as needed for Anxiety. Immunizations Ordered Filled Immunization Date Status Comments [facility] e Immunization Name Name Influenza Virus 2020-06-01 Completed Universit y of Vaccine [place] .5 mL 00:00:00 [place] [facility] IM 6+ MO Branch Influenza Virus 2020-06-01 Completed Universit y of Vaccine [place] .5 mL 00:00:00 [facility] 6+ MO Branch Influenza Virus 2020-06-01 Completed Universit y of Vaccine [place] .5 mL 00:00:00 [facility] 6+ MO Branch Influenza Virus 2020-06-01 Completed Universit y of Vaccine [place] .5 mL 00:00:00 [place] [facility] IM 6+ MO Branch Influenza Virus 2020-06-01 Completed Universit y of Vaccine [place] .5 mL 00:00:00 [place] [facility] IM 6+ MO Branch Influenza Virus 2020-06-01 Completed Universit y of Vaccine [place] .5 mL 00:00:00 [place] [facility] IM 6+ MO Branch Influenza Virus 2020-06-01 Completed Universit y of Vaccine [place] .5 mL 00:00:00 [place] [facility] IM 6+ MO Branch Influenza Virus 2020-06-01 Completed Universit y of Vaccine [place] .5 mL 00:00:00 [place] [facility] IM 6+ MO Branch Influenza Virus 2020-06-01 Completed Universit y of Vaccine [place] .5 mL 00:00:00 [place] [facility] 6+ MO Branch Varicella 2011-11-03 Completed University of (varivax)(chicken 00:00:00 [place] M edical pox) Branch Varicella 2011-11-03 Completed University of (varivax)(chicken 00:00:00 [place] M edical pox) Branch Varicella 2011-11-03 Completed University of (varivax)(chicken 00:00:00 [place] M edical pox) Branch Varicella 2011-11-03 Completed University of (varivax)(chicken 00:00:00 [place] M edical pox) Branch Varicella 2011-11-03 Completed University of (varivax)(chicken 00:00:00 [place] M edical pox) Branch Varicella 2011-11-03 Completed University of (varivax)(chicken 00:00:00 [place] M edical pox) Branch Varicella 2011-11-03 Completed University of (varivax)(chicken 00:00:00 [place] M edical pox) Branch Varicella 2011-11-03 Completed University of (varivax)(chicken 00:00:00 [place] M edical pox) Branch Varicella 2011-11-03 Completed University of (varivax)(chicken 00:00:00 [place] M edical pox) Branch Varicella 2011-11-03 Completed University of (varivax)(chicken 00:00:00 [place] M edical pox) Branch Varicella 2011-11-03 Completed University of (varivax)(chicken 00:00:00 [place] M edical pox) Branch Vital Signs Vital Name Observation Time Observation Value Comments Source Systolic blood 2020-08-18 00:55:00 142 mm[Hg] Univer sity of pressure [facility] Diastolic blood 2020-08-18 00:55:00 88 mm[Hg] Unive rsity of pressure [facility] Heart rate 2020-08-18 00:55:00 96 /min [facility] Body temperature 2020-08-18 00:55:00 36.89 Cassie [facility] Respiratory rate 2020-08-18 00:55:00 20 /min [facility] Body weight 2020-08-18 00:55:00 62.5 kg [facility] BMI 2020-08-18 00:55:00 25.20 kg/m2 [facility] Oxygen saturation in 2020-08-18 00:55:00 97 /min University of Arterial blood by [place] [facility]i hay Pulse oximetry Branch Systolic blood 2020-08-18 00:55:00 142 mm[Hg] Univer sity of pressure [place] [facility] Diastolic blood 2020-08-18 00:55:00 88 mm[Hg] Unive rsity of pressure [place] [facility] Heart rate 2020-08-18 00:55:00 96 /min [facility]i ty [facility] [place] [facility] Body temperature 2020-08-18 00:55:00 36.89 Cassie Univ ersity of [place] [facility] Respiratory rate 2020-08-18 00:55:00 20 /min Univ ersity of [place] [facility] Body weight 2020-08-18 00:55:00 62.5 kg Universi ty [facility] [place] [facility] BMI 2020-08-18 00:55:00 25.20 kg/m2 Universi ty of [place] [facility] Oxygen saturation in 2020-08-18 00:55:00 97 /min University of Arterial blood by [facility] Pulse oximetry Branch Systolic blood 2020-06-01 19:08:00 130 mm[Hg] Univer sity of pressure [place] [facility] Diastolic blood 2020-06-01 19:08:00 78 mm[Hg] Unive rsity of pressure [place] [facility] Heart rate 2020-06-01 19:08:00 91 /min Universi ty [facility] [place] [facility] Respiratory rate 2020-06-01 19:08:00 16 /min Univ ersity of [place] [facility] Body height 2020-06-01 19:08:00 157.5 cm [facility]i ty [facility] [place] [facility] Body weight 2020-06-01 19:08:00 60.328 kg [facility]i ty [facility] [place] [facility] BMI 2020-06-01 19:08:00 24.33 kg/m2 [facility] [place] [facility] Oxygen saturation in 2020-06-01 19:08:00 99 /min University of Arterial blood by [facility] [place] [facility] hay Pulse oximetry Branch Systolic blood 2020-06-01 19:08:00 130 mm[Hg] Univer sity of pressure [place] [facility] Diastolic blood 2020-06-01 19:08:00 78 mm[Hg] Unive rsity of pressure [place] [facility] Heart rate 2020-06-01 19:08:00 91 /min Universi ty [facility] [place] [facility] Respiratory rate 2020-06-01 19:08:00 16 /min Univ ersity of [place] [facility] Body height 2020-06-01 19:08:00 157.5 cm Universi ty of [place] [facility] [place] Body weight 2020-06-01 19:08:00 60.328 kg Universi ty of [place] [facility] BMI 2020-06-01 19:08:00 24.33 kg/m2 Universi ty of [place] [facility] Oxygen saturation in 2020-06-01 19:08:00 99 /min University of Arterial blood by [facility] Pulse oximetry Branch Systolic blood 2019-04-29 20:17:00 124 mm[Hg] Univer sity of pressure [facility] Diastolic blood 2019-04-29 20:17:00 80 mm[Hg] Unive rsity of [email or web address] Heart rate 2019-04-29 20:17:00 72 /min Universi ty of [place] [facility] [place] Body temperature 2019-04-29 20:17:00 36.67 Cassie [facility] Respiratory rate 2019-04-29 20:17:00 16 /min [facility] Body height 2019-04-29 20:17:00 157.5 cm Universi ty of [place] [facility] [place] Body weight 2019-04-29 20:17:00 60.873 kg Universi ty of [place] [facility] BMI 2019-04-29 20:17:00 24.55 kg/m2 Universi ty of [place] [facility] [place] Oxygen saturation in 2019-04-29 20:17:00 98 /min University of Arterial blood by [facility] Pulse oximetry Branch Procedures Procedure Date / Time Performed Performing Clinician [facility] e EXTERNAL PROVIDER 2021-06-19 05:01:00 Doctor Unassigned, No [facility] RECORDS [facility] Branch ASSIGNMENT OF BENEFITS 2021-05-31 05:01:00 Doctor Unassigned, No [facility] Medical Branch XR WRIST 3+ VW LEFT 2020-08-18 01:38:48 [facility] FLU VACC ([id number]), 2020-06-01 19:13:32 Sharla Garcia [facility] 6+ MONTHS, IM, QUAD Medical Bran ch Encounters Start End Encounter Admission Attending Care Care Encounter Source Date/Time Date/Time Type Type Clinicians Facility Department ID 2021-06-19 2021-06-19 Orders Doctor HARMON 1.2.840.114 [id number] Univers 00:00:00 00:00:00 Only Unassigned, MANOLO [id number] ity of [place] [facility] 4.2.7.2.686 [place] as [id number] [facility] 009 [place] 2021-05-31 2021-05-31 Outpatient R [facility] [id number] Univers 11:00:00 11:00:00 [id number] ity [facility] 2021-05-31 2021-05-31 [facility] [id number] Univers 11:00:00 11:00:00 JEWEL ity [facility] 2021-05-31 2021-05-31 Orders Doctor EDEN 1.2.840.114 [id number] Univers 00:00:00 00:00:00 Only Unassigned, MANOLO [id number] ity of [place] [facility] 4.2.7.2.686 [place] [phone] [facility] 009 [place] 2020-11-24 2020-11-24 [facility] 1.2.840.114 [id number] Univers 00:00:00 00:00:00 Outreach Mike PRIMARY [id number] i ty of [place] [id number] [place]ical [address] [place] 2020-11-24 2020-11-24 [facility] 1.2.840.114 [id number] 00:00:00 00:00:00 Outreach Mike PRIMARY [id number] [place] CARE 4.2.7.2.686 PAVILLION [id number] [id number] 2020-09-23 2020-09-23 Outpatient MAGUI Juares CHKAMRAN [id number] 14:15:00 14:15:00 Tanjessica [id number] 2020-08-17 2020-08-17 [facility] 1.2.840.114 [id number] Univers 19:20:00 23:59:[address] [facility] A Rodessa [id number] ity of [place].2.[place] [id number] [facility] 809 Branch 2020-08-17 2020-08-17 Hospital Blu [facility] [[email or web address]] 1.2.840.114 [id number] 19:20:00 23:59:00 Encounter Alpa Kaur [id number] Pediatric 4.2.7.2.686 [place] [id number] 2020-08-17 2020-08-17 Urgent Alpa Hurt [facility] [[email or web address]] 1.2.840.114 [id number] Univers 18:46:57 19:35:31 Care Unknown, Attending Rod[place] [id number] ity of [place].2.686 [place] [id number] [facility] 370 Branch 2020-08-17 2020-08-17 Urgent Blu [facility] [[email or web address]] 1.2.840.114 [id number] 18:46:57 19:35:31 Care Alpa Denis [place] [id number] Pediatric 4.2.7.2.686 [place] [id number] 370 2020-08-17 2020-08-17 Outpatient R [facility] [id number] Univers 18:45:00 18:45:00 [id number] ity [facility] 2020-08-17 2020-08-17 Outpatient R UNKNOWN, [facility] [id number] Univers 18:45:00 18:45:00 ATTENDING ity [facility] 2020-08-01 2020-08-01 Telephone EDEN Costello [id number] Univers 00:00:00 00:00:00 Aranza FRENCH [id number] it y of HOSPITAL 4.2.7.2.686 [place] [id number] [facility] 019 Branch 2020-08-01 2020-08-01 Telephone EDEN Costello [id number] 00:00:00 00:00:00 [place]ello [facility] 350.1.13.10 [facility] 4.2.7.2.686 [id number] 2020-07-28 2020-07-28 Laboratory Only, Pcp Test [facility] [[email or web address]] 1.2.840. 114 [id number] Univers 08:20:47 08:35:47 Only Jewel Morris PRIMARY [id number] it[place] [id number] [address] 2020-07-28 2020-07-28 Laboratory Only, Pcp [facility] [[email or web address]] 1.2.840.114 [id number] 08:20:47 08:35:47 Only Test PRIMARY [id number] CARE 4.2.7.2.686 PAVILLION [id number] [facility] 2020-07-28 2020-07-28 Outpatient R [facility] [id number] Univers 08:30:00 08:30:00 [id number] [facility] 2020-07-28 2020-07-28 [facility] [id number] Univers 08:30:00 08:30:00 JEWEL [facility] 2020-06-01 2020-06-01 [facility] 1.2.840.114 [id number] Univers 13:43:06 14:03:06 Visit Sharla NAPOLES 350.1.13.10 it y of MEDICINE 4.2.7.2.686 [place] CLINIC - [id number] [address] 2020-06-01 2020-06-01 Office [facility] 1.2.840.114 [id number] 13:43:06 14:03:06 Visit Sharla N[place]ES 350.1.13.10 MEDICINE 4.2.7.2.686 CLINIC - [id number] [address] 2020-06-01 2020-06-01 Outpatient Humaira GARCIA [facility] [id number] Univers 13:40:00 13:40:00 SHARLA [id number] [facility] 2020-06-01 2020-06-01 Outpatient R JOSE [facility] [id number] Univers 13:40:00 13:40:00 SHARLA [facility] 2020-05-17 2020-05-17 Outpatient R JOSE [facility] [id number] Univers 11:00:00 11:00:00 SHARLA [facility] 2020-05-17 2020-05-17 Outpatient Humaira GARCIA [facility] [id number] Univers 11:00:00 11:00:00 SHARLA [facility] 2020-05-13 2020-05-13 [facility] [id number] Univers 11:00:00 11:00:00 SHARLA [id number] [facility] 2020-05-13 2020-05-13 [facility] [id number] Univers 11:00:00 11:00:00 SHARLA [facility] 2019-04-29 2019-04-29 Office Una Nava [facility] [[email or web address]] 1.2.840.114 [id number] Univers 14:48:28 15:08:28 Visit Aristeo Boo 350.1.13.10 ity of MEDICINE 4.2.7.2.686 [place] [facility] as CLINIC - [id number] [address] Results This patient has no known results.
== END 2021-07-13 21:33 | disposition home or self-care (01) ==
LOC: ER 17:42
DX: H10.33 Unspecified acute conjunctivitis, bilateral (principal); Z88.8 Allergy status to other drugs, medicaments and biological substances
CPT/HCPCS: 99283; J7120